=== PATIENT | female | born 1980 | race Caucasian/White ===

== ENCOUNTER → 2017-01-02 | Outpatient (CLI) | payer OTHER, BC | END | disposition home or self-care (01) | LOC: MA 12:43 | PROC: BH02ZZZ Plain Radiography of Bilateral Breasts (ICD-10-PCS; principal; 2017-01-02) | DX: N64.4 Mastodynia (principal) | CPT/HCPCS: G0204 ==

== ENCOUNTER → 2018-02-03 | Outpatient (CLI) | payer OTHER, BC | END | disposition home or self-care (01) | LOC: US 10:41 | PROC: BH40ZZZ Ultrasonography of Right Breast (ICD-10-PCS; principal; 2018-02-03) | DX: N64.4 Mastodynia (principal) | CPT/HCPCS: 76641 ==

== ENCOUNTER → 2018-07-29 | Outpatient (CLI) | payer OTHER, BC | END | disposition home or self-care (01) | LOC: US 09:00 | PROC: BH40ZZZ Ultrasonography of Right Breast (ICD-10-PCS; principal; 2018-07-29) | DX: R22.31 Localized swelling, mass and lump, right upper limb (principal) | CPT/HCPCS: 76641 ==

== ENCOUNTER → 2019-06-09 | Outpatient (CLI) | payer OTHER, BC ==
[2019-06-09 10:41] LABS: ALBUMIN 4.1 g/dL (3.4-5.0); BILIRUBIN DIRECT 0.13 mg/dL (0.0-0.2); BILIRUBIN TOTAL 0.37 mg/dL (0.20-1.00); TOTAL PROTEIN, SERUM 8.1 g/dL (6.4-8.2)
== END | disposition home or self-care (01) ==
LOC: US 09:00
DX: K80.20 Calculus of gallbladder without cholecystitis without obstruction (principal); R10.11 Right upper quadrant pain

== ENCOUNTER → 2019-08-16 | Outpatient (CLI) | payer OTHER ==
[2019-08-16 18:28] LABS: FREE T4 0.9 ng/dL (0.76-1.46)
== END | disposition home or self-care (01) ==
LOC: LB 17:12
DX: R10.11 Right upper quadrant pain (principal); K59.00 Constipation, unspecified
CPT/HCPCS: 84439

== ENCOUNTER → 2020-04-25 | Outpatient (CLI) | payer OTHER, BC ==
[2020-04-25 09:38] LABS: BASOPHIL % 0.7 % (0-2); PLATELET COUNT 271 x10^3mcL (130-400); RED CELL DISTRIBUTION WIDTH 13.8 % (11.5-14.5)
[2020-04-25 09:42] LABS: UA SPECIFIC GRAVITY 1.015 (1.005-1.035); microscopic required? YES; urine erythrocyte 3+ (NEGATIVE)
[2020-04-25 10:09] LABS: ALBUMIN 3.7 g/dL (3.4-5.0); ALKALINE PHOSPHATASE 73 U/L (46-116); ALT/SGPT 35 U/L (14-59); AST/SGOT 18 U/L (15-37); BILIRUBIN TOTAL 0.26 mg/dL (0.20-1.00); CALCIUM 8.4 mg/dL (8.5-10.1); CARBON DIOXIDE 24.8 mmol/L (21-32); CHLORIDE SERUM 106 mmol/L (98-107); CHOLESTEROL 186 mg/dL (<200); CHOLESTEROL/HDL RATIO 4.2; CREATININE SERUM 0.6 mg/dL (0.6-1.0); GFR1 > 60 mL/min; GLUCOSE SERUM 98 mg/dL (74-106); HDL CHOLESTEROL 44 mg/dL (40-60); SODIUM SERUM 139 mmol/L (136-145); TOTAL PROTEIN, SERUM 7.6 g/dL (6.4-8.2); TRIGLYCERIDES 63 mg/dL (<150)
[2020-04-28 13:05] LABS: VITAMIN D 1,25 DIHYDROXY 61.9 pg/mL (19.9-79.3)
== END | disposition home or self-care (01) ==
LOC: MA 04-18 15:00
PROC: BH02ZZZ Plain Radiography of Bilateral Breasts (ICD-10-PCS; principal; 2020-04-25)
DX: Z12.31 Encounter for screening mammogram for malignant neoplasm of breast (principal); Z13.228 Encounter for screening for other metabolic disorders; Z13.21 Encounter for screening for nutritional disorder; Z13.220 Encounter for screening for lipoid disorders; Z13.0 Encounter for screening for diseases of the blood and blood-forming organs and certain disorders involving the immune mechanism; Z13.1 Encounter for screening for diabetes mellitus
CPT/HCPCS: 77067; 82652; 84439